=== PATIENT | female | born 1955 | race Caucasian/White ===

== ENCOUNTER 2024-09-07 08:53 | Day surgery (SDC) | payer OTHER, BC ==
[2024-09-05 12:03] VITALS: BMI 27.9
[2024-09-07] MEDS ORDERED: TETRACAINE 0.5% OPHTH SOLN 2 ML BOTTLE ONE (09:26)
[2024-09-07] MEDS ORDERED: NEO/POLYMYX B SULF/DEXAMETH OPHTHALMIC 5ML BOTTLE ONE (09:26)
[2024-09-07] MEDS ORDERED: BSS (NA/CA/MG/K) BALANCED SALT SOLUTION OPHTH SOLN 15 ML BOTTLE ONE (09:26)
[2024-09-07] MEDS ORDERED: LIDOCAINE 1% P/F 10 MG/ML VIAL ONE (09:26)
[2024-09-07] MEDS ORDERED: CARBACHOL 0.01% INTRA-OCULAR 1.5 ML VIAL ONE (09:26)
[2024-09-07 09:28] VITALS: RESP 18
[2024-09-07] MEDS ORDERED: CYCLOPENTOLATE 2% OPHTH SOLN 2 ML BOTTLE ONE (09:32)
[2024-09-07] MEDS ORDERED: TROPICAMIDE 1% OPHTH SOLN 15 ML BOTTLE ONE (09:32)
[2024-09-07] MEDS ORDERED: PHENYLEPHRINE 2.5% OPTHALMIC DROP 2ML BOTTLE ONE (09:32)
[2024-09-07] MEDS ORDERED: TOBRAMYCIN 0.3% OPHTH SOLN 5 ML BOTTLE ONE (09:38)
[2024-09-07] MEDS: PHENYLEPHRINE 2.5% OPTHALMIC DROP BOTTLE OD SCH (09:40)
[2024-09-07] MEDS: CYCLOPENTOLATE 2% OPHTH SOLN 2 ML BOTTLE OD SCH (09:40)
[2024-09-07] MEDS: TROPICAMIDE 1% OPHTH SOLN 15 ML BOTTLE OD SCH (09:40)
[2024-09-07] MEDS: TOBRAMYCIN 0.3% OPHTH SOLN 5 ML BOTTLE OD SCH (09:40)
[2024-09-07] MEDS ORDERED: MIDAZOLAM HCL 2 MG/2 ML SINGLE DOSE VIAL ONE (11:03)
[2024-09-07 11:42] VITALS: TEMP 98
[2024-09-07 12:07] VITALS: BP 120/52; PULSE 60
== END 2024-09-07 12:00 | disposition home or self-care (01) ==
LOC: FASU 08:53
PROVIDERS: ATTEND Ophthalmology
PROC: 08RJ3JZ Replacement of Right Lens with Synthetic Substitute, Percutaneous Approach (ICD-10-PCS; principal; 2024-09-07 11:07)
DX: H26.8 Other specified cataract (principal)
CPT/HCPCS: 66984; V2632